=== PATIENT | male | born 1990 | race Caucasian/White ===

== ENCOUNTER 2025-07-27 09:11 | Outpatient (AMB) | payer OTHER, SELFPAY ==
[2025-07-27 09:23] VITALS: BMI 36.3
--- NOTE | 2025-07-27 09:23 | A.PHYSOV ---
Vital Signs 07/27/25 09:23 Height 5 ft 11 in Weight 260 lb BMI 36.3 Intake Visit Reasons: Follow up after injection 06/15/25 Intake Note: Patient is a 35 year old male here for follow up after 06/15/25 left L5 tfe. Allergies No Known Allergies Allergy (Verified 07/27/25 09:25) HPI Comments Details: History of Present Illness The patient is a 35 year old male presenting for a follow-up visit after a second steroid injection for back and leg pain. He underwent left L5 TFESI on 06/15/2025. He received the injection on June 15 and reports approximately 60% improvement in his symptoms. He notes this second injection was more painful during administration but provided better results than the first one. The patient has a history of a re-herniated disc, which occurred after a previous surgery when he lifted his 50-pound dog. He wishes to avoid another surgery. While his back and leg pain have improved, he still experiences some tolerable pain in his glute, particularly with sitting, which he manages with Tylenol or ibuprofen. The patient has been more active since the injection. He reports significant weight loss of approximately 50 pounds since August, down from about 300 pounds. Pain Description - Location: The patient reports pain in his back and leg, with some residual pain felt in his glute. - Severity: He reports a 60% overall improvement, and the remaining pain is described as tolerable. - Exacerbating Factors: Sitting can provoke gluteal pain. - Relieving Factors: A steroid injection on June 15 provided significant relief. - Interference with Function: The pain no longer prevents him from being active or going through his day. Procedure: Left L5 TFESI 60% reduction of his pain 06/15/2025 COUNT INCLUDES THE [facility] Surgical History History of back surgery Social History (Updated 07/25/25 @ 14:00 by Keke Cortés MA) Alcohol intake: current Alcohol intake frequency: does not drink Patient Tobacco Use Status: Never used Tobacco Use of substances other than those prescribed or required for medical reasons: Yes Substance Use Type: Marijuana Review of Systems Narrative Review of Systems - Constitutional: Reports significant weight loss of 50 pounds since August. - Musculoskeletal: Reports improved back and leg pain, with some residual, tolerable gluteal pain, particularly when sitting. - All other systems were reviewed and are negative. Physical Exam Exam Exam: Physical Exam Lumbar Spine: Examination of his lumbar spine, there is no visible swelling or deformity. He is less tender to lower lumbar facets. He has full range of motion of his lumbar spine. He denies any increase in pain with facet loading. Special Tests: Lhermittes sign was negative Heel Toe walk is normal Left straight leg raise: Negative Right straight leg raise: Negative Special tests Travis test is negative Ganslen's test is negative SI Joint compression test negative Charlie test negative Piriformis stretch is negative Lower Extremities: Full range of motion bilateral lower extremities. No calf pain or edema. Neuro: Sensation: Intact to lower extremities bilaterally Strength L2 (Psoas): 5/5 on the left and 5/5 on the right. L3 (Quads): 5/5 on the left and 5/5 on the right. L4 (Ant tibialis): 5/5 on the left and 5/5 on the right. L5 (EHL) 5/5 on the left and 5/5 on the right. S1 (Gastroc): 5/5 on the left and 5/5 on the right. DTR L4: (Patellar) Left 2 Right 2 S1: (Achilles) Left 1 Right 1 Babinski Downgoing No pathologic clonus. No involuntary movement. Vital Signs: BMI result Body Mass Index 36.3 Assessment & Plan Assessment & Plan (1) Lumbar radiculopathy: Code(s): M54.16 - Radiculopathy, lumbar region Category: Medical (2) Lumbar spondylosis: Code(s): M47.816 - Spondylosis without myelopathy or radiculopathy, lumbar region Category: Medical Plan Pain Management - Analgesia: The patient received his second steroid injection on June 15, which provided 60% pain relief. - He uses Tylenol or ibuprofen as needed for residual pain. - Activities of Daily Living: He is able to be more active and can get through his day. - Adverse Effects: He noted the most recent injection was painful during the procedure but yielded the best results. - Aberrant Drug Related Behaviors: No aberrant behaviors were noted or discussed. Plan Patient was informed and verbally consented to the use of an ambient scribe for clinic note documentation during this visit. 1. Low Back Pain The patient is a 35-year-old male with chronic low back pain and radiculopathy, status post a second steroid injection on June 15, with a reported 60% improvement. His residual pain is tolerable. The risks of frequent steroid injections were discussed, including potential long-term damage to local tissues. It was recommended to limit injections to once or twice a year, though they could be considered every four months for severe pain. He will continue with an active lifestyle, including walking, biking, and swimming, and maintain a healthy diet. No further procedures are scheduled at this time, and he will follow up as needed. Discussion Notes I discussed with the patient that as a young man, it is advisable to limit the frequency of steroid injections to avoid long-term side effects, such as the degradation of tendons, ligaments, and bone. I recommended a frequency of once or twice per year as reasonable, with the possibility of an injection every four months for occasional severe flare-ups. I explained that the efficacy of each injection can vary because needle placement relative to the nerve cannot be precisely replicated, though we only see the foramen and not the nerve itself. I also informed him that sedation is an option if the procedure is intolerable, but he declined, acknowledging the good results from the recent injection and understanding the added costs and complexities of sedation. We discussed that the ultimate goal is for the underlying disc issue to improve so that injections are no longer needed, and I acknowledged his desire to avoid further surgery. I commended his significant weight loss of 50 pounds and encouraged him to continue being active with walking, biking, and swimming, and to maintain a healthy diet, especially with a young child at home. Patient Instructions - Your recent steroid injection has helped reduce your pain by about 60%. - For any remaining mild pain, you can use auej-bpi-qbzhjhr medications like Tylenol or ibuprofen. - It is best to limit future steroid injections to once or twice a year to avoid long-term problems. We can consider it more often if your pain becomes very severe. - Continue to stay active with activities like walking, biking, and swimming. - Continue with your healthy diet and weight management, which has been very helpful. - Please contact us if you need anything or if your pain gets significantly worse. Coding Level of Care Code Tele Est Pt Level 3 (68413) Diagnoses Lumbar radiculopathy M54.16 Lumbar spondylosis M47.816
== END 2025-07-27 10:02 | disposition home or self-care (01) ==
LOC: HO.HPHYS 09:11
PROVIDERS: Visit Provider Physician Assistant
DX: M54.16 Radiculopathy, lumbar region (principal); M47.816 Spondylosis without myelopathy or radiculopathy, lumbar region
CPT/HCPCS: 99213

== ENCOUNTER 2025-08-06 10:20 | Outpatient (AMB) | payer OTHER, SELFPAY ==
[2025-08-06 11:16] VITALS: BP 104/76; PULSE 95; TEMP 37.1; O2SAT 96; BMI 36.7
--- NOTE | 2025-08-06 11:16 | MHC.OFFWIV ---
Intake Vital Signs 08/06/25 11:16 Height 5 ft 11 in Weight 263 lb BMI 36.7 BP 104/76 Blood Pressure Location Lt brachial Position Sitting Pulse 95 Pulse Source Pulse Oximeter Temp 98.7 F Temp Source Oral Pulse Oximetry (%) 96 Oxygen Delivery Method Room Air Intake Visit Reasons: EP Possible sinus infection Intake Note: pt presents with sinus congestion and pain with yellow/green mucus x3 days Patient Tobacco Use Status: Never used Tobacco Allergies No Known Allergies Allergy (Verified 08/06/25 11:23) Do you need a note to return to daycare/school/sports/work: Yes HPI HPI Comments History of Present Illness Details History of Present Illness - The patient is a 35 year old male presenting with symptoms of a sinus infection. - His symptoms began on Wednesday night with a sore throat, which progressively worsened by Wednesday. - On Wednesday, his symptoms briefly improved before worsening again, and he now reports sinus pain, pressure, headache, a dry nonproductive cough, and eye pain. - He has tried oipw-nxu-kfvzyhl Mucinex with pseudoephedrine with minimal benefit. - He also tried a generic Flonase nasal spray, which he felt exacerbated his symptoms. - His past medical history is significant for recurrent sinus infections and allergies, for which he takes Zyrtec. - Previous treatments for sinus infections have included antibiotics such as Z-Deny and Augmentin. - He has tried prednisone in the past without finding it helpful and reports no known drug allergies. - He denies fever, chills, CP, SOB, abd pain, or n/v/d. Physical Exam General: Cooperative, healthy appearing, comfortable, no acute distress and well developed Head: Normal to inspection Ears: Hearing grossly normal bilaterally. No tragus or mastoid tenderness noted. Auditory canals clear bilaterally. TM's normal, not bulging. No fluid noted. Nose: Normal external nose present. Moist mucosa. Turbinates normal bilaterally, not boggy. Face and sinus: Tenderness to palpation of the frontal and maxillary sinuses bilaterally. Neck: Normal visual inspection and Yes full ROM. No lymphadenopathy noted. Respiratory: Normal respiratory effort and able to speak in complete sentences. Clear to auscultation bilaterally Cardiovascular: Regular rate and rhythm. Normal S1 and S2 GI: Normal to inspection. Soft to palpation and nontender, nondistended. No guarding noted. Skin: No rashes or lesions noted [facility] Surgical History History of back surgery Social History (Updated 07/25/25 @ 14:00 by Keke Cortés MA) Alcohol intake: current Alcohol intake frequency: does not drink Patient Tobacco Use Status: Never used Tobacco Substance Use Type: Marijuana Review of Systems Const All systems reviewed & are unremarkable except as noted in HPI and below Physical Exam Vital Signs: Last Vital Signs Temp 98.7 F 08/06/25 11:16 Pulse 95 08/06/25 11:16 BP 104/76 08/06/25 11:16 Pulse Ox 96 08/06/25 11:16 Oxygen Delivery Method Room Air 08/06/25 11:16 BMI result Body Mass Index 36.7 Assessment & Plan Assessment & Plan (1) Sinusitis: Code(s): J32.9 - Chronic sinusitis, unspecified Qualifiers: Sinusitis location: frontal Chronicity: acute Recurrence: non-recurrent Qualified Code(s): J01.10 - Acute frontal sinusitis, unspecified Plan Most likely sinusitis vs URI vs covid vs flu vs RSV plan - tylenol or motrin as needed for pain or fever - steam showers - continue with mucinex as needed for cough or congestion - will give a work note - follow up with PCP Medications: New amoxicillin-pot clavulanate 875-125 mg 1 tab PO Q12H 14 tabs 0RF Coding Level of Care Code Est Pt Level 3 (75264) Diagnoses Acute non-recurrent frontal sinusitis J01.10 Sinusitis location: frontal Chronicity: acute Recurrence: non-recurrent
== END 2025-08-06 12:07 | disposition home or self-care (01) ==
PROVIDERS: Visit Provider Physician Assistant Medical
DX: J01.10 Acute frontal sinusitis, unspecified (principal)

== ENCOUNTER 2025-08-06 10:20 | Outpatient (REF) | payer OTHER, SELFPAY ==
--- OUTSIDE RECORDS SUMMARY | 2025-07-09 03:40 | XMS_ITS ---
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 Name Role Phone GEORGIA MITCHELL Primary Care Provider REASON FOR VISIT PG/Follow-upin 6 months for recheck on blood pressure and cholesterol Encounters Encounter Location Date Provider Diagnosis [place] [phone] 07/09/2025 GEORGIA STEPHEN Plan Of Treatment Next Appt Details Provider Name:GEORGIA ARAGON, 01/09/2026 08:00:00 AM, [address] [place] [address], [phone], Provider Name:GEORGIA ARAGON, 01/18/2026 08:00:00 AM, [address] [place] [address], [phone], Progress Notes * JAZMIN MIRANDADOB:1990 (35 yo M)Acc No.[id number]:07/09/2025 Progress Notes Patient: MIRANDA LESTER Provider: Sony PATEL :1990 A ge:35 Y S ex:Male Date:07/09/2025 Address:[address] [id number] Subjective: * Chief Complaints: * P G/Follow-upin 6 months for recheck on blood pressure and cholesterol * Electronic signature of ADRIANA MITCHELL PA-C. P on 08/06/2025 at 07:54 PM EST Sign off status: Pending * Provider: Sony PATEL Date: 09/08/2024 Generated for Pritesh stewart/Kinjal/Abby on: 10/07/2024 07:54 PM EST
[2025-08-06 14:56] LABS: Resp Syncy Virus RNA Qual PCR NEGATIVE (Negative); SARS COV2 PCR INHOUSE NEGATIVE (Negative)
--- OUTSIDE RECORDS SUMMARY | 2025-08-06 19:54 | XMS_ITS | Patient Health Record ---
Author Organization [facility] Address [address] [place] [address] Care Team Providers Care Neurological Physiotherapist Name Role Phone GEORGIA MITCHELL Primary Care Provider [phone] [place], NURSING Unavailable [phone] Allergies No Known Allergies Reason For Referral Reason 12/06/24 w appt Incr eased lower back pain with left-sided sciatica needs evaluation for injection Diagnosis 1 Bilateral low back p ain with left-sided sciatica, unspecified chronicity (M54.42) Referral Organization [facility] Referring Provider First Name GEORGIA Referring Provider Last Name STEPHEN Referring Provider Speciality Internal M edicine Referred Provider RIGOBERTO BASS Referred Provider Specialty Physical Med icine and Rehabilitation General Notes GEORGIA MITCHELL 12/06 09:38:46 AM > patient with increased lower back pain and nearly constant sciatica over the last several days. History of microdiscectomy [place] [address] Field (neurosurgery). Has noted some increasing discomfort and pain down the leg but no weakness or incontinence. Evaluate for injection. Please send referral to Dr. Rigoberto Bass at [address], [place], MARINA,Irene P Admin 12/06/2024 10:30:03 AM > faxed medical referral and notes to [facility] at [phone] requesting an URGENT visit please>faxed separately to same number is a cervical spine xray from 07/03/24>no referral required as Dr Bass is in network with pt's [facility] plan Referral Priority Urgent Reason Low back pain with l eft-sided sciatica. Evaluate and treat Diagnosis 1 Bilateral low back p ain with left-sided sciatica, unspecified chronicity (M54.42) Referral Organization [facility] Referring Provider First Name GEORGIA Referring Provider Last Name STEPHEN Referring Provider Speciality Internal edicine Referred Provider Specialty Chiropractor , licensed (effective February 1973) General Notes GEORGIA MITCHELL 01/22 12:20:48 PM > please send referral to Lalo Franco, [address] [place] [address]., [address], [place] [address]. Fax number , phone number . Patient to be seen for evaluation and treatment of bilateral lower back pain with left-sided sciatica. Patient has been seen by physiatry with Dr Bass and was told he could see the chiropractor., Charleen GRAY MA 02/08/2025 12:22:40 PM > Referral faxed MARINA Natalie G MA 02/28/2025 08:37:20 AM > Pt was seen 01/31/25, Irene GRAY 06/28/2025 09:11:53 AM > nrr>encounter closed Referral Priority Routine Referral Appointment Date 01/31/2025 Reason (REFAXED 06/05/25) A cute kidney stone with hydronephrosis of right kidney Diagnosis 1 Nephrolithiasis (N20 .0) Diagnosis 2 Hydronephrosis of ri ght kidney (N13.30) Referral Organization [facility] Referring Provider First Name GEORGIA Referring Provider Last Name STEPHEN [facility] Referred Provider SANJEEV MONCADA Referred Provider Specialty Urology General Notes MITCHELLGEORGIA 05/29 05:41:33 PM > patient developed sudden onset of right-sided flank and abdominal pain with nausea. Was seen in ED at [facility] and CT showed mild right-sided hydronephrosis along with 4 mm obstructing stone at the distal ureter. Patient continues to have pain since early Wednesday morning. Has been straining urine without evidence of stone. Has been drinking fluids. ER did not give any medication. Tamsulosin started May 30, 2025., Charleen GRAY MA 05/30/2025 09:39:17 AM > Referral faxed Clinical Notes Charleen GRAY MA 02:18:17 PM > tried calling office [phone] office is closed , Charleen GRAY MA 06/05/2025 02:28:02 PM > Called office, they have not received referral, Refaxed to [phone] and [phone] Referral Priority Urgent Medications Medication SIG (Take, Route, Frequency, Duration) Notes Start Date End Date Status Albuterol Sulfate HFA 108 (90 Base) MCG/ACT Aerosol Solution 2 puff as needed Inhalation q6 hours prn 06/13/2024 Active Venlafaxine HCl 50 MG Tablet 1 tab(s) Or ally Once a day Active Vitamin D 1000 UNIT Tablet 1 tablet Oral ly Once a day Active Claritin 10 MG Tablet 1 tablet Orally On ce a day; Duration: 30 day(s) Active Ketoconazole 2 % Shampoo as directed Ext ernally as needed Active Tylenol 325 MG Tablet 1 tablet as needed Orally every 4 hrs Active Atorvastatin Calcium 20 MG Tablet 1 tablet Orally Once a day; Duration: 90 days Active Methocarbamol 750 MG Tablet 1 tablet Orally q8hr prn 12/06/2024 Active Immunizations Vaccine Route Administration Date Status Comme nts Influenza Vaccine[158] Unknown 07/26/2021 Administered Moderna COVID-19 mRNA LNP-S PF Unknown 11/29/2020 Administered Moderna COVID-19 mRNA LNP-S PF Unknown 12/27/2020 Administered Tdap (Adacel) IM Intramuscular 01/05/2025 Administered Social History Tobacco Use: Social History Observation Description Date Details (start date - stop date) Never Smoker NA - NA Social History Tobacco Use: Social Info Question Answer Notes Smoking Are you a: never smoker Additional Details Category Social Info Options Details General Occupation: unemployed asbestos exposure: no Past year's travels: None 2024 alcohol use: yes occasionally drug use: yes mariuana 2-3x/wk at bedtime Hobbies/Exercise habits: compute r games Coffee/Tea/Soda: yes no coffee, no t ea, soda 7-8 a week Marital Status experience no Living with Pets 1 dog smokers in household no quit cigars Section Notes: pt never smoke cigarettes pt never smoke cigarettes pt never smoke cigarettes pt never smoke cigarettes no smoking to cigers pt never smoke cigarettes currently smoking cigars on occasion, no cigarettes pt never smoke cigarettes pt never smoke cigarettes Problems Problem Type SNOMED Code ICD Code Onset Dates Problem Status W/U Status Risk Notes Problem Essential hypertension (32343861) Essential hypertension (I10) Active confirmed Problem Neck pain (19022815) Neck pain (M54.2) Active confirmed Problem Nephrolithiasis (54227121) Nephrolithiasis (N20.0) Active confirmed Problem Morbid obesity (disorder) (033398743) Morbid (severe) obesity due to excess calories (E66.01) Active confirmed Problem Cervical radiculopathy (90906967) Cervical radiculopathy (M54.12) Active confirmed Problem Prolapsed lumbar intervertebral disc (714208748) Lumbar disc herniation (M51.26) Active confirmed Problem Posttraumatic stress disorder (44055189) PTSD (post-traumatic stress disorder) (F43.10) Active confirmed Problem Hyperlipidaemia (55198664) Hyperlipidemia, unspecified hyperlipidemia type (E78.5) Active confirmed Problem Atopic dermatitis (05562711) Atopic dermatitis, unspecified type (L20.9) Active confirmed Problem Sciatica (47618724) Bilateral low back pain with left-sided sciatica, unspecified chronicity (M54.42) Active confirmed Problem Mild major depression, single episode (21165780) Current mild episode of major depressive disorder, unspecified whether recurrent (F32.0) Active confirmed Problem Generalized anxiety disorder (02139524) YOLANDA (generalized anxiety disorder) (F41.1) Active confirmed Problem Body mass index 35.00 to 39.99 (347370171755063) Body mass index [BMI] 38.0-38.9, adult (Z68.38) Active confirmed Problem Body mass index 40+ - severely obese (284460978) Body mass index [BMI] 40.0-44.9, adult (Z68.41) Active confirmed Problem Obese class II (finding) (292764550427584) Obesity, class 2 (E66.812) Active confirmed Vital Signs Blood pressure diastolic 78 mm Hg 07/10/2025 Height 69 in 07/10/2025 Blood pressure systolic 114 mm Hg 07/10/2025 Weight 257.8 lbs 07/10/2025 BMI 38.07 kg/m2 07/10/2025 Encounters Encounter Location Date Provider Diagnosis [place] [phone] 12/06/2024 GEORGIA MITCHELL Bilateral low back p ain with left-sided sciatica, unspecified chronicity M54.42 [place] [phone] 01/05/2025 GEORGIA MITCHELL Encounter for genera l adult medical examination without abnormal findings Z00.00 ; Encounter for screening, unspecified Z13.9 ; Essential hypertension I10 ; Hyperlipidemia, unspecified hyperlipidemia type E78.5 ; Current mild episode of major depressive disorder, unspecified whether recurrent F32.0 ; Body mass index [BMI] 40.0-44.9, adult Z68.41 and Bilateral low back pain with left-sided sciatica, unspecified chronicity M54.42 [place] [phone] 01/05/2025 NURSING [place] Encounter for immunization Z23 [place] [phone] 04/17/2025 GEORGIA MITCHELL Bilateral low back p ain with left-sided sciatica, unspecified chronicity M54.42 ; Lumbar disc herniation M51.26 and Current mild episode of major depressive disorder, unspecified whether recurrent F32.0 [place] [phone] 05/10/2025 GEORGIA MITCHELL URI with cough and congestion J06.9 [place] [phone] 05/11/2025 GEORGIA MITCHELL Encounter for laboratory testing for COVID-19 virus Z20.828 [place] [phone] 07/10/2025 GEORGIA MITCHELL Essential hypertensi on I10 ; Hyperlipidemia, unspecified hyperlipidemia type E78.5 ; Body mass index [BMI] 38.0-38.9, adult Z68.38 and Obesity, class 2 E66.812 [place] [phone] 11/15/2024 GEORGIA MITCHELL [place] [phone] 11/23/2024 GEORGIA MITCHELL [facility] [address] [facility] [place] [address] 12/06/2024 GEORGIA MITCHELL [facility] [address] [place] [address] 12/08/2024 GEORGIA MITCHELL Bilateral low back p ain with left-sided sciatica, unspecified chronicity M54.42 [facility] [address] [place] [address] 12/11/2024 GEORGIA MITCHELL [facility] [address] [place] [address] 05/10/2025 GEORGIA MITCHELL [facility] [address] [place] [address] 05/10/2025 GEORGIA MITCHELL [facility] [address] [place] [address] 07/05/2025 GEORGIA MITCHELL [facility] [address] [place] [address] 10/11/2024 GEORGIA MITCHELL [facility] [address] [place] [address] 10/11/2024 GEORGIA MITCHELL [facility] [address] [place] [address] 11/23/2024 GEORGIA MITCHELL [facility] [address] [place] [address] 12/08/2024 GEORGIA MITCHELL [facility] [address] [place] [address] 12/11/2024 GEORGIA MITCHELL [facility] [address] [place] [address] 12/12/2024 GEORGIA MITCHELL [facility] [address] [place] [address] 01/22/2025 GEORGIA MITCHELL [facility] [address] [place] [address] 01/22/2025 GEORGIA DONALDSONSON Bilateral low back p ain with left-sided sciatica, unspecified chronicity M54.42 [facility] [address] [place] [address] 01/29/2025 GEORGIA MITCHELL [facility] [address] [place] [address] 02/27/2025 GEORGIA MITCHELL [facility] [address] [place] [address] 04/12/2025 GEORGIA MITCHELL [facility] [address] [place] [address], [place] [address] 05/10/2025 GEORGIA MITCHELL [facility] [address] [place] [address], [place] [address] 05/21/2025 GEORGIA MITCHELL [facility] [address] [place] [address], [place] [address] 05/21/2025 GEORGIA MITCHELL [facility] [address] [place] [address], [place] [address] 05/27/2025 GEORGIA MITCHELL Nephrolithiasis N20. 0 and Hydronephrosis, right N13.[address] [place] [address] 06/01/2025 GEORGIA MITCHELL [address] [address] 07/23/2025 GEORGIA MITCHELL Assessments Encounter Date Diagnosis (ICD Code) Assessment Notes Treatment Notes Treatment Clinical Notes Section Notes 12/06/2024 Bilateral low back pain with left-sided sciatica, unspecified chronicity (ICD-10 - M54.42) Referral to physiatry placed. Prednisone taper as prescribed. Diclofenac 75 mg 1 tablet twice a day as needed with food after finishing prednisone taper. Methocarbamol 750 mg 1 tablet every 8 hours if needed if too drowsy just at bedtime. Ice and heat to back as discussed. Gentle stretching and range of motion as discussed. Follow-up as scheduled for physical, sooner if needed. 12/08/2024 Bilateral low back pain with left-sided sciatica, unspecified chronicity (ICD-10 - M54.42) 01/05/2025 Encounter for general adult medical examination without abnormal findings (ICD-10 - Z00.00) Physical in 1 year. Tdap today. Up-to-date with eye care and dental care. 01/05/2025 Encounter for screening, unspecified (ICD-10 - Z13.9) Labs ordered. 04/17/2025 Lumbar disc herniation (ICD-10 - M51.26) Prednisone taper as prescribed. Will try gabapentin 300 mg at bedtime. Can go up to twice a day in 1 week if tolerating. Can potentially eventually go up to 3 times a day. Methocarbamol up to 3 times a day as prescribed. Ice and heat to area as discussed. Stretching and range of motion as directed. Follow-up with physiatry at the chiropractor. Return here as needed/scheduled sooner if worsening. Red flag symptoms discussed and advised to go to ER if develop. 04/17/2025 Bilateral low back pain with left-sided sciatica, unspecified chronicity (ICD-10 - M54.42) See lumbar disc herniation plan 05/10/2025 URI with cough and congestion (ICD-10 - J06.9) Refilled albuterol as requested. Patient will come tomorrow to [facility]-through line for COVID-19, flu and RSV testing. He is encouraged however to get a combination COVID 19/flu home test and test again today and then tomorrow morning and contact office if positive. Otherwise will come tomorrow afternoon. In the meantime patient will be doing symptomatic care with his albuterol inhaler, Robitussin DM or Delsym for the cough, plenty of liquids, saline nasal sprays, salt water gargles, throat lozenges, humidifier, rest. Use Tylenol as needed. Diet as tolerated. Encouraged masking if leaving house. Further treatment will be based on test results. 07/10/2025 Essential hypertension (ICD-10 - I10) Labs ordered. Patient will continue to work on diet, exercise and weight loss. Blood pressure under good control off of medication at this time. Recheck in 6 months. Will continue to monitor. 07/10/2025 Hyperlipidemia, unspecified hyperlipidemia type (ICD-10 - E78.5) Labs ordered. Continue atorvastatin 20 mg daily. Tolerating well. Discussed diet, exercise and continued weight loss. We will continue to monitor and recheck in 6 months. 01/05/2025 Encounter for immunization (ICD-10 - Z23) 05/11/2025 Encounter for laboratory testing for COVID-19 virus (ICD-10 - Z20.828) Nasal swab collected and submitted; pt instructed to self isolate until results of covid testing come back and to call if symptoms progress. Advised that the ordering provider or PCP will contact with the results of the test. 05/27/2025 Nephrolithiasis (ICD-10 - N20.0) 05/27/2025 Hydronephrosis, right (ICD-10 - N13.30) 01/22/2025 Bilateral low back pain with left-sided sciatica, unspecified chronicity (ICD-10 - M54.42) 07/10/2025 Body mass index [BMI] 38.0-38.9, adult (ICD-10 - Z68.38) Patient has lost 20 pounds since his last visit and continues to work on his weight loss. He has been improving his diet and trying to get some regular exercise. We will continue to monitor and recheck in 6 months. 04/17/2025 Current mild episode of major depressive disorder, unspecified whether recurrent (ICD-10 - F32.0) Continue venlafaxine 50 mg daily. Currently stable we will continue to monitor. 01/05/2025 Essential hypertension (ICD-10 - I10) Blood pressure under good control today. Labs are ordered. Continue with clonidine 0.1 mg daily prescribed for his behavioral health issues but also appears to be helping his blood pressure. He continues to work on weight loss and we discussed diet and exercise. Recheck in 6 months. Return sooner as needed. 01/05/2025 Hyperlipidemia, unspecified hyperlipidemia type (ICD-10 - E78.5) Labs ordered. Continue atorvastatin 20 mg daily. Discussed diet, exercise and weight loss. We will continue to monitor. 07/10/2025 Obesity, class 2 (ICD-10 - E66.812) See body mass index plan. 01/05/2025 Current mild episode of major depressive disorder, unspecified whether recurrent (ICD-10 - F32.0) Follow-up with behavioral health as scheduled. Continue venlafaxine 25 mg daily and clonidine 0.1 mg daily. Currently stable. We will continue to monitor. 01/05/2025 Body mass index [BMI] 40.0-44.9, adult (ICD-10 - Z68.41) Patient has lost 10 pounds since his last visit and nearly 20 pounds since June 2024 just working on diet and lifestyle changes and some exercise. Continues to work on weight loss and we will continue to monitor. Labs ordered. Will recheck in 6 months. 01/05/2025 Bilateral low back pain with left-sided sciatica, unspecified chronicity (ICD-10 - M54.42) Hold diclofenac and start meloxicam 15 mg once a day with food. If not as effective can go back to diclofenac but try to be more consistent. Methocarbamol as needed. Ice to area as discussed. Gentle range of motion and stretching. Follow-up with physiatry as scheduled. We will continue to monitor. Plan Of Treatment Future Test Test Name Order Date THYROID PANEL (TSH FT4) 08/26/2022 Next Appt Details Provider Name:GEORGIA DONALDSON SON, 01/09/2026 08:00:00 AM, [address] [place] [address], [phone], Provider Name:GEORGIA DONALDSON SON, 01/18/2026 08:00:00 AM, [address] [place] [address], [phone], Insurance Providers Payer Name Payer Address Payer Phone Subscriber Number Group Number Insured Name Patient Relationship to Insured Coverage Start Date Coverage End Date [facility] [address] [place], [place] [id number] MIRANDA WU Self - patient is the insured 3 Medical (General) History Medical History History ICD Code asthma depression YOLANDA/PTSD migraines mononucleosis pneumonia Covid 19 infection- 12/31/2021 Spinal stenosis/Degenerative Disc diseas e. high clorestrol kidney stone Surgical History Surgery Date(Month/Year) Back cortisone injection 12/2024 left shoulder cortisone inj 2022 wisdom teeth x3 microdisectomy- Dr Field(neurosurgery) 01/22 1
--- OUTSIDE RECORDS SUMMARY | 2025-08-06 19:54 | XMS_ITS | Data Portability ---
Author Organization [place] [facility] Yessica Alcantara [place] Address [address] [place] [address] Care Team Providers Care Surgical Device Sales Representative Name Role Phone RICHAR MITCHELL PATRICK Referring Provider Unavail able GEORGIA MITCHELL Primary Care Provider [phone] Assessment Encounter Date Assessment Date Assessment LastModified by Organization Details LastModified Time 07/08/2023 07/08/2023 This is a pleasant 33-year-old male who comes with longstanding ongoing progressively worsening left shoulder pain with clinical exam findings for the following; 1. Impingement syndrome left shoulder 2. Adhesive capsulitis left shoulder 3. Calcific tendinitis left shoulder I had a lengthy discussion with the patient regarding treatment modalities. He is amenable to formal physical therapy for which she will go 2 times a week x6 weeks. He is also amenable to a provider prescribe nonsteroidal anti-inflammator y. He will discontinue his ibuprofen we will start him on Celebrex 200 mg daily for 30-day trial. I did review the pros, cons, benefits and risks including black box warning of Celebrex for which she is aware and wishes to proceed with. He can augment with acetaminophen 1000 mg every 8 hours as needed for pain. And he opted for cortisone injection of the left shoulder at today's visit. After verbal consent was obtained. The procedure was carried out on the left shoulder for which she tolerated well. He had notable improvement regarding his range of motion as well as his discomfort was significantly reduced. Aftercare instructions were discussed in detail. I would like to reevaluate him in 6 weeks however if he does not show improvement in 4 weeks he will contact me and we will consider an MRI of the left shoulder. He is in agreement with the above-noted plan. Patient was seen and evaluated by Luis Alfredo Karimi PA-C in indirect conjuction with Documenting Provider: Rubin Sutherland MD . He/She agrees with history, physical examination, tests/diagnostic imaging, and treatment plan. I also gave him a list of stretching exercises to perform until he is able to get into formal physical therapy. Additional treatment plan discussed with the patient (only initiated if in boldface font) otherwise not applicable. Treatment may include the following; - Provider focused nonsteroidal anti-inflammator y regimen (discussed were the pros, cons, benefits and risks as well as any black box warnings) in patients over 60 years old they should be very cautious in taking these medications due to potential decreased kidney function and or elevated blood pressure. - Analgesic pain medication for pain suppression (discussed were the pros, cons, benefits and risks as well as any black box warnings) - The use of topical pain relieving medication were discussed - The use of ice to decrease inflammation and pain - The use of assistive ambulatory devices for ambulation and fall prevention - Formal specific guided physical therapy program I reviewed my findings at length with the patient today. We discussed the nature and etiology of this problem along with current treatment options. We discussed the expected course and outcomes and what to expect. We also discussed risks and benefits. All of their questions were answered today, and there was exhibited understanding and comprehension of all that was discussed. Time Spent: 10 minutes were spent reviewing previous imaging and charting. 10 minutes were spent obtaining patient history. 5 minutes were spent on physical exam. 5minutes were spent explaining diagnosis and assessment. Today's documentation was made using voice recognition software. This note may contain grammatical errors secondary to the software. Not available 07/08/2023 13:23:14 08/31/2023 08/31/2023 This is a pleasant 33-year-old male who I initially saw on 07/08/2023 with a diagnosis of impingement syndrome left shoulder, adhesive capsulitis left shoulder and calcific tendinitis left shoulder Treated with cortisone injection, provider based nonsteroidal anti-inflammator y with Celebrex, formal physical therapy. He is at 100% relief at this time. He is requesting for a refill on his Celebrex which I we will give him a total of 2. After which he needs to reach out to his primary care to arrange for long-term management by them. He can follow-up as needed should his symptoms return he should contact my office immediately he agrees with this plan. Patient was seen and evaluated by Luis Alfredo Karimi PA-C in indirect conjuction with Documenting Provider: Rubin Sutherland MD . He/She agrees with history, physical examination, tests/diagnostic imaging, and treatment plan. Additional treatment plan discussed with the patient (only initiated if in boldface font) otherwise not applicable. Treatment may include the following; - Provider focused nonsteroidal anti-inflammator y regimen (discussed were the pros, cons, benefits and risks as well as any black box warnings) in patients over 60 years old they should be very cautious in taking these medications due to potential decreased kidney function and or elevated blood pressure. - Analgesic pain medication for pain suppression (discussed were the pros, cons, benefits and risks as well as any black box warnings) - The use of topical pain relieving medication were discussed - The use of ice to decrease inflammation and pain - The use of assistive ambulatory devices for ambulation and fall prevention - Formal specific guided physical therapy program I reviewed my findings at length with the patient today. We discussed the nature and etiology of this problem along with current treatment options. We discussed the expected course and outcomes and what to expect. We also discussed risks and benefits. All of their questions were answered today, and there was exhibited understanding and comprehension of all that was discussed. Time Spent: 10 minutes were spent reviewing previous imaging and charting. 10 minutes were spent obtaining patient history. 5 minutes were spent on physical exam. 5minutes were spent explaining diagnosis and assessment. Today's documentation was made using voice recognition software. This note may contain grammatical errors secondary to the software. Not available 08/31/2023 13:09:48 Plan of Treatment Reminders Order Date Submit Date Provider Last Modified By Organization Details Last Modified Time Details Appointments None recorded. Lab None recorded. Referral physical therapist referral - Left shoulder impingement , adhesive capsulitis, calcific tendonitis EVAL and treat 2022 023 [email or web address] Not available 08:16:24 Procedures None recorded. Surgeries None recorded. Imaging XR, shoulder, 2 or more view 2022 023 [facility], [address], [place], [address], 3 11:43:31 Medication Orders Kenalog 40 mg/mL suspension for injection 2022 023 [email or web address] [id number], [address] [place], [place], [id number], 3 10:43:48 lidocaine (PF) 10 mg/mL (1 %) injection solution 2022 023 [email or web address] #[id number], [address], [place], [id number], 3 10:43:51 bupivacaine (PF) 0.5 % (5 mg/mL) injection solution 2022 [email or web address] Not available 4 14:06:45 Celebrex 200 mg capsule 2022 023 [facility][id number], [address], [place], [id number], 3 10:37:04 Patient TargetsNo targets recorded. Patient Instructions Encounter Date Encounter Id Patient Instructions Last Modified By Organization Details Last Modified Time 07/08/2023 [id number] You have been provided with a cortisone injection in order to reduce the pain and inflammation that you are experiencing. The injection consists of two medications. Cortisone (an anti-inflammatory that will take 48-72 hours to take effect) and Lidocaine (a numbing agent that will last 2-3 hours). Please note that not everyone will have a lasting response following the injection. PATIENT INSTRUCTIONS Once the Lidocaine wears off, you may have an increase in your pain. I recommend icing the affected area for 20 minutes 3-4 times per day. It is recommended that you refrain from any high level activities using the joint or limb that was injected for approximately 24-48 hours. Normal day-to-day activities are generally not a problem. POSSIBLE SIDE EFFECTS Individuals with dark complexions may experience some skin discoloration locally at the site of the injection. There is the possibility of an increase in discomfort within 48 hours following the injection. This is called theodore delaney . To help minimize the chances of this, please see the post-injection instructions above. There is a less than 1% chance of an infection. If you notice any signs of infection (redness, warmth, drainage, fever greater than 100 degrees) please call our office or contact us through the portal PRICE. Not available 07/08/2023 11:34:34 2 views Grashey and Y view reveal the following; 1. Grashey view well-maintained glenohumeral joint there is a notable calcification adjacent to the greater tuberosity consistent with calcific tendinitis. No acute bony abnormality 2. Type II downsloping of the acromion on Y view no acute bony abnormality. Outside view internal rotation with well-maintained AC joint notable calcification just superior to the humeral head External rotation well-maintained joint space calcification once again noted no acute bony abnormality Not available 07/08/2023 13:25:48 Reason for Referral Physical Therapist Referral for Impingement syndrome of left shoulder region Left shoulder impingement, adhesive capsulitis, calcific tendonitis EVAL and treat Referring Physician: Luis Alfredo Karimi, Orthopedic Surgery, Encounter Date: 07/08/2023 Problems Name Problem SNOMED Code Status Onset Date Resolution Date Notes Provider Name and Address Organization Details Recorded Time Impingement syndrome of left shoulder region 0278772287106 04 Active 2022 LUIS ALFREDO KARIMI PA-C [address], [place], [place], [address], [place] [facility], P 3 10:31:44 Adhesive capsulitis of left shoulder [id number] 07 Active 2022 LUIS ALFREDO KARIMI PA-C [address], [place], [address], [place] [facility], P 3 10:31:51 Calcific tendinitis of left shoulder [id number] 08 Active 2022 LUIS ALFREDO KARIMI PA-C [address], [place], [address], [place] [facility], P 3 10:32:10 Problem Notes None recorded. Procedures Surgical History Date Name Laterality Status Provider Name and Address Organization Details Recorded Time 3 Shoulder Joint/Bursa Asp & Inj completed LUIS ALFREDO KARIMI PA-C [address] [place] [address],[facility] [address], [place], [address], [place] [facility], P 07/08/2023 13:19:26 Imaging Results None recorded. Procedure Notes None recorded. Medical Equipment None Reported. Allergies No known drug allergies Medications Name Sig Start Date Stop Date Status Note LastModified by Organization Details LastModified Time celecoxib 200 mg capsule TAKE 1 CAPSULE BY MOUTH EVERY DAY 2023 active Not Available Not Available Not Avai lable buspirone 5 mg tablet TAKE 1 TABLET BY MOUTH TWICE DAILY 07/08 completed Not Available Not Available Not Available clonidine HCl 0.1 mg tablet TAKE 1 TABLET BY MOUTH AT BEDTIME NEEDED. MAY TAKE 1-2 TABLET active Not Available Not Available No t Available venlafaxine ER 75 mg capsule,ext ended release 24 hr TAKE 1 CAPSULE BY MOUTH EVERY MORNING active Not Available Not Available No t Available atorvastati n 20 mg tablet TAKE 1 TABLET BY MOUTH EVERY DAY active Not Available Not Available No t Available ketoconazol e 2 % shampoo USE SHAMPOO AND FACE WASH FOR 1 WEEK THEN A COUPLE TIMES PER WEEK FOR MAINATENC E active Not Available Not Available No t Available venlafaxine 25 mg tablet TAKE 1 TABLET BY MOUTH EVERY MORNING 07/08 completed Not Available Not Available Not Available bupropion HCl SR 100 mg tablet,12 hr sustained-r elease TAKE 1 TABLET BY MOUTH EVERY MORNING 07/08 completed Not Available Not Available Not Available Kenalog 40 mg/mL suspension for injection Take 1.5 mL by injection route. 07/08 completed Not Available Not Available Not Available triamcinolo ne acetonide 0.025 % topical cream active Not Available Not Available Not Available bupropion HCl 75 mg tablet TAKE 1 TABLET BY MOUTH EVERY MORNING 07/08 completed Not Available Not Available Not Available venlafaxine 50 mg tablet TAKE 1 TABLET BY MOUTH EVERY MORNING 07/08 completed Not Available Not Available Not Available scopolamine 1 mg over [address] PATCH TO THE SKIN BEHIND THE EAR EVERY 72 HOURS NEEDED active Not Available Not Available No t Available bupivacaine (PF) 0.5 % (5 mg/mL) injection solution Take 2 mL by injection route. 08/31 completed Not Available Not Available Not Available bupropion HCl XL 150 mg 24 hr tablet, extended release TAKE 1 TABLET BY MOUTH TWICE DAILY 07/08 completed Not Available Not Available Not Available Tylenol active Not Available Not Avail able Not Available lidocaine (PF) 10 mg/mL (1 %) injection solution Take 2 mL by injection route. 07/08 completed Not Available Not Available Not Available Vitals Date Recorded Body height Body mass index (BMI) Body weight Provider Name and Address Organization Details Last Updated DateTime 07/08/2023 180.34 cm 41.8 kg/m2 639191.71 g Meredith Toro [place] - [facility], 07/08/2023 10:45:17 Social History None recorded. Functional Status Question Answer Note LastModified by [employer] ion Details LastModified Time How many times per week do you consume alcohol? 1-2 times per week Information not available 07/08/2023 Do you use any illicit or recreational drugs? Yes marijuana Information not available 07/08/2023 Do you or have you ever used any other forms of tobacco or nicotine? No Information not available 07/08/2023 What is your level of alcohol consumption? Occasional Information not available 07/08/2023 Mental Status None recorded. Family History Relationship Description Onset Age of this Age Resolved Age Notes LastModified by Organization Details LastModified Time Mother Arthritis Not available 07/08/2023 10:47:02 Mother Diabetes mellitus Not available 2022 10:47:09 Mother Hypercholest erolemia Not available 2022 10:47:20 Mother Hypertensive disorder Not available 2022 10:47:34 Father Hypercholest erolemia Not available 2022 10:47:20 Father Hypertensive disorder Not available 2022 10:47:34 Medical History Condition Response Bleeding Disorder Y Past Encounters Encounter ID Performer Location Encounter Start Date Encounter Closed Date Diagnosis/Indication Diagnosis SNOMED-CT Code Diagnosis ICD10 Code Diagnosis IMO Codes Diagnosis Note [id number] SIMIN KEMP [facility] [address] [facility] [place] [address] 07/08/2023 09:22:01 07/08/2023 10:43:21 Pain of left shoulder joint [id number] M25.512 Impingemen t syndrome of left shoulder region 1522404142 34294 M75.42 Adhesive c apsulitis of left shoulder [id number] 56148 M75.02 Calcific t endinitis of left shoulder 5732375920 12172 M75.32 [id number] SIMIN KEMP [facility] [address] [facility] [place] [address] 08/31/2023 12:43:10 08/31/2023 13:06:36 Impingement syndrome of left shoulder region 1135117997 40733 M75.42 Follow-up orthopedic assessment 835055517 Z47.89 Health Concerns Section Related Observation LastModified by Organization Detai ls LastModified Time None Recorded Concern Status LastModified by Organization Details LastModified Time None Recorded Advance Directives Directive None Recorded Payers Insurance Date Sequence Insurance Name Policy Number Policy Hobson Covered Member ID Hobson Member ID Guarantor Name 10/21/2023 1 [facility] [id number] Alex [place] [id number] Alex [place] Notes Date Note Type Note Provider Name and Address Organization Details Recorded Time 07/08/2023 text/html This is a very pleasant 33-year-old male who comes in for first-time visit evaluation left shoulder pain has been longstanding in nature however states approximately a month ago this began waking him up at night. He describes the pain is anterior nature that shoots down his deltoid. He describes it as burning, limiting his mobility and range of motion. He states that he did see his primary care provider who ordered x-rays for which I reviewed at today's visit. He states he is done ibuprofen as well as Tylenol which gave him little to no relief. He states he has well-controlled blood pressure on blood pressure medication. He denies neck symptoms or paresthesias here for evaluation treatment. LUIS ALFREDO KARIMI PA-C [address] [facility], [place], [address], [place] [facility], P 07/08/2023 13:26:52 08/31/2023 text/html Assessment & Plan: It of last and initial visit 07/08/2023.This is a pleasant 33-year-old male who comes with longstanding ongoing progressively worsening left shoulder pain with clinical exam findings for the following; 1. Impingement syndrome left shoulder2. Adhesive capsulitis left shoulder3. Calcific tendinitis left shoulder I had a lengthy discussion with the patient regarding treatment modalities. He is amenable to formal physical therapy for which she will go 2 times a week x6 weeks. He is also amenable to a provider prescribe nonsteroidal anti-inflammatory. He will discontinue his ibuprofen we will start him on Celebrex 200 mg daily for 30-day trial. I did review the pros, cons, benefits and risks including black box warning of Celebrex for which she is aware and wishes to proceed with. He can augment with acetaminophen 1000 mg every 8 hours as needed for pain.And he opted for cortisone injection of the left shoulder at today's visit. After verbal consent was obtained. The procedure was carried out on the left shoulder for which she tolerated well. He had notable improvement regarding his range of motion as well as his discomfort was significantly reduced. Aftercare instructions were discussed in detail. I would like to reevaluate him in 6 weeks however if he does not show improvement in 4 weeks he will contact me and we will consider an MRI of the left shoulder. He is in agreement with the above-noted plan. HPI:Patient states he is completely asymptomatic he is doing great he has completed and graduated from formal physical therapy. He had good relief with his cortisone injection. He does take Celebrex daily which also gives him good relief. Here for scheduled follow-up LUIS ALFREDO KARIMI PA-C [address] [facility] [address], [place], [address], [place] [facility], P 08/31/2023 13:10:44
== END 2025-08-06 10:21 | disposition home or self-care (01) ==
LOC: HO.LAB 10:20
PROVIDERS: Visit Provider Physician Assistant Medical
DX: R09.89 Other specified symptoms and signs involving the circulatory and respiratory systems (principal); Z03.818 Encounter for observation for suspected exposure to other biological agents ruled out; Z79.899 Other long term (current) drug therapy
CPT/HCPCS: 87637